=== PATIENT | male | born 1945 | race Caucasian/White ===

== ENCOUNTER 2023-05-05 07:58 | Outpatient (RCR) | payer MEDICARE, SELFPAY ==
[2023-05-05 08:50] VITALS: PULSE 68
== END 2023-05-08 14:31 | disposition home or self-care (01) ==
LOC: ANHCPREHAB 07:58
PROVIDERS: PCP Internal Medicine; Visit Provider Internal Medicine
DX: Z95.5 Presence of coronary angioplasty implant and graft (principal); Z95.1 Presence of aortocoronary bypass graft
CPT/HCPCS: 93798

== ENCOUNTER 2024-02-17 12:51 | Emergency (ER) | payer MEDICARE, SELFPAY ==
[2024-02-17] VITALS (11 sets, daily range): BP systolic 101–160; BP diastolic 58–97; PULSE 70–112; RESP 14–35; TEMP 36.3; O2SAT 95–100
[2024-02-17] MEDS: SODIUM CHLORIDE 0.9% IV 1,000 ML 999 ML IV CONT ×2 (13:40→16:13)
[2024-02-17] MEDS: ONDANSETRON INJ 4 MG/2 ML VIAL IV PUSH ×2 (13:40→16:34)
[2024-02-17 13:43] LABS: Basophils Percent Auto 0.4 % (0.2-1.2); Eosinophils Absolute Auto 0.2 K/mm3 (0-0.3); Eosinophils Percent Auto 2.6 % (0-4.4); Hematocrit 55.3 % (42.0-52.0); Hemoglobin 18.6 g/dL (14.0-18.0); Immature Granulocyte Absolute 0.01 K/mm3 (0.00-0.031); Immature Granulocyte Percent A 0.1 % (0-0.5); Lymphocytes Absolute Auto 1.44 K/mm3 (0.9-3.2); Lymphocytes Percent Auto 20.6 % (18.3-44.2); Mean Corpuscular HGB Conc 33.6 g/dl (32-36); Mean Corpuscular Hemoglobin 31.5 pg (26-34); Mean Corpuscular Volume 93.6 fl (80-100); Mean Platelet Volume 10.3 fl (7.4-10.4); Monocytes Absolute Auto 1.3 K/mm3 (0.1-0.6); Monocytes Percent Auto 18.7 % (2.6-8.5); Neutrophils Percent Auto 57.6 % (45.5-73.1); Platelet Count Result 161 k/mm3 (150-375); Red Blood Count 5.91 M/mm3 (4.6-6.20); Red Cell Distribution Width 13.9 % (11.5-14.5)
[2024-02-17 13:59] LABS: Alanine Aminotransferase 33 U/L (6-50); Albumin Level 4.8 g/dL (3.5-5.1); Alkaline Phosphatase 92 U/L (38-126); Anion Gap 14 mmol/L (8-16); Aspartate Amino Transferase 43 U/L (17-59); Bilirubin,Total 1.1 mg/dL (0.2-1.3); Blood Urea Nitrogen 43 mg/dL (9-20); Calcium 9.7 mg/dL (8.4-10.2); Carbon Dioxide 19 mmol/L (22-30); Chloride 103 mmol/L (98-107); Estimated CRCL calculation 39 ml/min; Estimated Glomerular Filt Rate 46; Glucose 133 mg/dL (65-110); Lipase 48 U/L (23-300); Potassium 3.9 mmol/L (3.4-5.0); Sodium 136 mmol/L (137-145)
[2024-02-17 15:44] LABS: Appearance Urine Clear (Clear); Color Urine Yellow (Yellow)
[2024-02-17 15:45] LABS: Specific Grav Ur >= 1.030 (1.001-1.035); pH Urine 5.5 (5.0-9.0)
[2024-02-17 15:46] LABS: Glucose Urine UA 1+ mg/dL (Negative); Ketones Urine Trace mg/dL (Negative); Protein Urine 2+ mg/dL (Negative)
[2024-02-17 15:47] LABS: Add Urine Microscopic? YES; Bilirubin Urine 1+ (Negative); Blood Urine Trace-intact (Negative); Leukocyte Esterase Ur Negative LEU/UL (Negative); Nitrate Urine Negative (Negative); Urobilinogen Urine 0.2 mg/dL (<2.0)
[2024-02-17 15:49] LABS: RBC Urine 0-2 /hpf (0-2); Squamous Epithelial Cell Urine Few /hpf (Few); WBC Urine 0-3 /hpf (0-3)
[2024-02-17 15:50] LABS: Bacteria Urine Rare /hpf
--- NOTE | 2024-02-17 16:14 | ED.GENADULT ---
HPI - General Adult General Chief complaint: Nausea/Vomiting/Diarrhea Stated complaint: diarrhea, vomiting, generalized weakness Time Seen by Provider: 02/17/24 13:27 History of Present Illness HPI narrative: 78-year-old otherwise healthy here with complaints of nausea, vomiting, diarrhea, feeling weak for past few days. Patient states that he is unable to keep any fluids or food down for past 3 days . Related Data Allergies Allergy/AdvReac Type Severity Reaction Status Date / Time lisinopril Allergy Cough Verified 02/17/24 13:48 Review of Systems Review of Systems: All systems reviewed & are unremarkable except as noted in HPI and below Constitutional: Constitutional: Reports no additional constitutional complaints Eyes: Eyes: Reports no additional eye complaints ENT: Reports system reviewed and no additional complaints, except as documented Cardiovascular: Cardiovascular: Reports no additional cardiovascular complaints Respiratory: Respiratory: Reports no additional respiratory complaints Gastrointestinal: Gastrointestinal: Reports as per HPI Musculoskeletal: Musculoskeletal: Reports no additional musculoskeletal complaints Integumentary/Breasts: Skin/Breast: Reports system reviewed and no additional complaints, except as docu Neurologic: Reports system reviewed and no additional complaints, except as documented Psychiatric: Psychiatric: Reports no additional psychiatric complaints PMFSH Family History Family History Mother Cerebrovascular accident Hypertension Sibling Cerebrovascular accident Social History Social History Smoking status: Never smoker Exam Narrative: GENERAL: Well-appearing, well-nourished, and in no acute distress. HEAD: Normocephalic, atraumatic. EYES: PERRLA and EOMI. ENT: Nares clear, no rhinorrhea or epistaxis. Mucous membranes moist. NECK: Supple. CHEST: Clear to auscultation. No respiratory distress. HEART: Regular rate and rhythm. No murmur heard. Normal peripheral pulses. ABDOMEN: Soft, nontender, nondistended, normal active bowel sounds. EXTREMITIES: Normal range of motion. No edema. SKIN: Warm, dry, no rash. NEURO: No focal deficits. Alert and oriented x3. PSYCH: Normal mood and affect. Course Course Emergency Course: Patient feeling much better after IV fluids. Did inform him and his about the lab work, recommended him to be on liquid diet and advance as tolerated. Vital Signs Vital signs: Vital Signs Temperature 36.3 C L 02/17/24 13:15 Pulse Rate 107 H 02/17/24 13:15 Respiratory Rate 16 02/17/24 13:15 Blood Pressure 129/77 02/17/24 13:15 Pulse Oximetry 97 02/17/24 13:15 Oxygen Delivery Room Air 02/17/24 13:15 Temperature 36.3 C L 02/17/24 13:15 Pulse Rate 107 H 02/17/24 14:49 Respiratory Rate 27 H 02/17/24 14:49 Blood Pressure 102/65 02/17/24 14:49 Pulse Oximetry 95 02/17/24 14:48 Oxygen Delivery Room Air 02/17/24 13:15 Medical Decision Making Vital Signs Vital Signs: Vital Signs Temperature 36.3 C L 02/17/24 13:15 Pulse Rate 107 H 02/17/24 13:15 Respiratory Rate 16 02/17/24 13:15 Blood Pressure 129/77 02/17/24 13:15 Pulse Oximetry 97 02/17/24 13:15 Oxygen Delivery Room Air 02/17/24 13:15 Temperature 36.3 C L 02/17/24 13:15 Pulse Rate 107 H 02/17/24 14:49 Respiratory Rate 27 H 02/17/24 14:49 Blood Pressure 102/65 02/17/24 14:49 Pulse Oximetry 95 02/17/24 14:48 Oxygen Delivery Room Air 02/17/24 13:15 Lab Data 02/17/24 13:36 02/17/24 13:36 Labs: Lab Results 02/17/24 02/17/24 Range/Units 13:36 14:53 WBC 7.0 (4.5-10.0) K/mm3 RBC 5.91 (4.6-6.20) M/mm3 Hgb 18.6 H (14.0-18.0) g/dL Hct 55.3 H (42.0-52.0) % MCV 93.6 (80-100) fl MCH 31.5 (26-34) pg MCHC 33.6 (32-36) g/dl RDW 13.9
[2024-02-17] MEDS: MORPHINE SULFATE (*CRX) 4 MG/ML INJ 2 MG IV PUSH (16:34)
== END 2024-02-17 17:14 | disposition home or self-care (01) ==
PROVIDERS: Emergency Provider Family Medicine; PCP Internal Medicine
DX: K52.9 Noninfective gastroenteritis and colitis, unspecified (principal)
CPT/HCPCS: 36415; 80053; 81001; 83690; 85025; 96361; 96374; 96376; 99284; J2270; J2405; J7030